=== PATIENT | female | born 1945 | race Two or more races ===

== ENCOUNTER 2022-10-21 23:28 | Inpatient (IN) | payer MEDICARE ==
[~2022-10-21] VITALS: Ht 162.6 cm; Wt 54.9 kg
[2022-10-21] MEDS ORDERED: ONDANSETRON HCL/PF 4 MG/2 ML VIAL ONE (23:43)
[2022-10-21] MEDS ORDERED: MORPHINE SULFATE INJ 4 MG/ML DISP.SYRIN ONE (23:44)
[2022-10-21 23:49] LABS: BASOPHILS # (AUTO) 0.1 K/uL (0.0-0.2); BASOPHILS % (AUTO) 1.1 % (0.0-2.0); EOSINOPHILS # (AUTO) 0.2 K/uL (0.0-0.7); EOSINOPHILS % (AUTO) 1.8 % (0.0-6.0); HEMATOCRIT 40 % (33-45); HEMOGLOBIN 13.4 g/dL (11.5-14.8); LYMPHOCYTES # (AUTO) 1.4 K/uL (0.8-4.8); LYMPHOCYTES % (AUTO) 14.6 % (20.0-44.0); MEAN CORPUSCULAR HEMOGLOBIN 31 PG (26.0-33.0); MEAN CORPUSCULAR HGB CONC 33 g/dl (31.0-36.0); MEAN CORPUSCULAR VOLUME 94 fL (82-100); MONOCYTES # (AUTO) 0.6 K/uL (0.1-1.30); MONOCYTES % (AUTO) 5.8 % (2.0-12.0); NEUTROPHILS # (AUTO) 7.6 K/uL (1.8-8.9); NEUTROPHILS % (AUTO) 76.7 % (43.0-81.0); PLATELET COUNT (AUTO) 163 K/uL (150-450); RED BLOOD CELL COUNT(AUTO) 4.29 MIL/uL (4.0-5.2); WHITE BLOOD COUNT (AUTO) 9.9 K/uL (4.3-11.0)
[2022-10-22] MEDS ORDERED: ONDANSETRON HCL/PF 4 MG/2 ML VIAL IVP ONE
[2022-10-22 00:06] LABS: CALCIUM, SERUM 9.3 mg/dL (8.5-10.1); CREATININE 0.6 mg/dL (0.6-1.3)
[2022-10-22] MEDS ORDERED: MORPHINE SULFATE INJ 4 MG/ML DISP.SYRIN ONE (03:32)
[2022-10-22] MEDS ORDERED: ONDANSETRON HCL/PF 4 MG/2 ML VIAL IVP PRN (04:00)
[2022-10-22] MEDS ORDERED: MORPHINE SULFATE INJ 2 MG/ML DISP.SYRIN IV ONE ×2 (04:00)
[2022-10-22] MEDS: IV NS 0.9% 1,000 ML IV PRN ×2 (04:12→20:20)
[2022-10-22 08:00] VITALS: BP 150/73; TEMP 97.9; O2SAT 92
[2022-10-22] MEDS: PANTOPRAZOLE 40 MG VIAL IV SCH (08:54)
[2022-10-22] MEDS ORDERED: ATOR10TA PO (09:20)
[2022-10-22] MEDS ORDERED: PROP20TA19 PO (09:20)
[2022-10-22] MEDS ORDERED: DULO60CA64 PO (09:20)
[2022-10-22] MEDS ORDERED: QUET100T PO (09:20)
[2022-10-22] MEDS ORDERED: DILT120C87 PO (09:34)
[2022-10-22 12:59] VITALS: O2SAT 94
[2022-10-22 16:00] VITALS: BP 161/83; TEMP 98.3; O2SAT 92
[2022-10-22] MEDS: hydrALAZINE HCL IV 20 MG VIAL IV PRN (18:05)
[2022-10-22 18:49] VITALS: BP 138/76
[2022-10-22 20:30] VITALS: BP 123/81; TEMP 98.2; O2SAT 96
[2022-10-22] MEDS: MORPHINE SULFATE INJ 2 MG/ML DISP.SYRIN IV PRN (21:47)
[2022-10-23] MEDS: MORPHINE SULFATE INJ 2 MG/ML DISP.SYRIN IV PRN ×2 (03:20→21:58)
[2022-10-23 06:16] LABS: BASOPHILS % (AUTO) 0.4 % (0.0-2.0); EOSINOPHILS # (AUTO) 0.1 K/uL (0.0-0.7); EOSINOPHILS % (AUTO) 1.4 % (0.0-6.0); HEMATOCRIT 43 % (33-45); HEMOGLOBIN 13.9 g/dL (11.5-14.8); LYMPHOCYTES % (AUTO) 12.3 % (20.0-44.0); MEAN CORPUSCULAR HEMOGLOBIN 31 PG (26.0-33.0); MEAN CORPUSCULAR HGB CONC 33 g/dl (31.0-36.0); MEAN CORPUSCULAR VOLUME 95 fL (82-100); MONOCYTES # (AUTO) 0.7 K/uL (0.1-1.30); MONOCYTES % (AUTO) 8.6 % (2.0-12.0); NEUTROPHILS # (AUTO) 6.2 K/uL (1.8-8.9); NEUTROPHILS % (AUTO) 77.3 % (43.0-81.0); PLATELET COUNT (AUTO) 160 K/uL (150-450); RED BLOOD CELL COUNT(AUTO) 4.47 MIL/uL (4.0-5.2); RED CELL DISTRIBUTION WIDTH 14.2 % (11.5-15.0); WHITE BLOOD COUNT (AUTO) 8.1 K/uL (4.3-11.0)
[2022-10-23 06:37] LABS: CALCIUM, SERUM 9.1 mg/dL (8.5-10.1); CARBON DIOXIDE 28 mmol/L (21-32); CHLORIDE 104 mmol/L (98-107); CREATININE 0.6 mg/dL (0.6-1.3); GLUCOSE 105 mg/dL (74-106); MAGNESIUM 1.9 mg/dL (1.8-2.4); PHOSPHORUS 2.8 mg/dL (2.5-4.9); POTASSIUM 4.4 mmol/L (3.5-5.1); SODIUM SERUM 139 mmol/L (136-145); UREA NITROGEN, BLOOD 11 mg/dL (7-18)
[2022-10-23 06:43] LABS: THYROID STIMULATING HORMONE 2.821 uIU/mL (0.358-3.74); URIC ACID 3.6 mg/dL (2.6-7.2)
[2022-10-23 07:30] VITALS: BP 152/83; TEMP 98.2; O2SAT 96
[2022-10-23] MEDS: PANTOPRAZOLE 40 MG VIAL IV SCH (08:23)
[2022-10-23] MEDS: IV NS 0.9% 1,000 ML IV PRN (08:23)
[2022-10-23 12:37] VITALS: BP 167/89; TEMP 97.9; O2SAT 97
[2022-10-23] MEDS: hydrALAZINE HCL IV 20 MG VIAL IV PRN (12:37)
[2022-10-23] MEDS: LORAZEPAM INJ 2 MG/ML VIAL IV PRN (12:43)
[2022-10-23] MEDS ORDERED: DIATR MEGLU/DIATRIZOATE SODIUM 120 ML BOTTLE (GASTROGRAPHIN) ONE (15:15)
[2022-10-23 16:45] VITALS: BP 106/74; O2SAT 97
[2022-10-23 16:50] VITALS: BP 109/64; O2SAT 97
[2022-10-23 18:09] VITALS: BP 110/74; O2SAT 96
[2022-10-23 20:00] VITALS: BP 144/79; TEMP 98.4; O2SAT 97
[2022-10-24] MEDS: LORAZEPAM INJ 2 MG/ML VIAL IV PRN (01:17)
[2022-10-24] MEDS: IV NS 0.9% 1,000 ML IV PRN (01:48)
[2022-10-24 07:30] VITALS: BP 159/88; TEMP 97.9; O2SAT 96
[2022-10-24 08:49] LABS: BASOPHILS % (AUTO) 0.9 % (0.0-2.0); EOSINOPHILS % (AUTO) 0.8 % (0.0-6.0); HEMATOCRIT 36 % (33-45); HEMOGLOBIN 11.8 g/dL (11.5-14.8); LYMPHOCYTES # (AUTO) 1.2 K/uL (0.8-4.8); MEAN CORPUSCULAR HEMOGLOBIN 31 PG (26.0-33.0); MEAN CORPUSCULAR HGB CONC 33 g/dl (31.0-36.0); MEAN CORPUSCULAR VOLUME 95 fL (82-100); MONOCYTES # (AUTO) 0.5 K/uL (0.1-1.30); MONOCYTES % (AUTO) 9.5 % (2.0-12.0); NEUTROPHILS # (AUTO) 3.8 K/uL (1.8-8.9); NEUTROPHILS % (AUTO) 67.8 % (43.0-81.0); PLATELET COUNT (AUTO) 135 K/uL (150-450); RED BLOOD CELL COUNT(AUTO) 3.79 MIL/uL (4.0-5.2); RED CELL DISTRIBUTION WIDTH 13.9 % (11.5-15.0); WHITE BLOOD COUNT (AUTO) 5.6 K/uL (4.3-11.0)
[2022-10-24 09:04] LABS: CALCIUM, SERUM 8.4 mg/dL (8.5-10.1); CARBON DIOXIDE 28 mmol/L (21-32); CHLORIDE 108 mmol/L (98-107); CREATININE 0.5 mg/dL (0.6-1.3); GLUCOSE 90 mg/dL (74-106); MAGNESIUM 1.8 mg/dL (1.8-2.4); PHOSPHORUS 2.6 mg/dL (2.5-4.9); SODIUM SERUM 142 mmol/L (136-145); UREA NITROGEN, BLOOD 9 mg/dL (7-18)
[2022-10-24] MEDS: PANTOPRAZOLE 40 MG VIAL IV SCH (09:08)
[2022-10-24] MEDS ORDERED: POTASSIUM CHLORIDE 20 MEQ TAB.PRT.SR PO ONE ×2 (10:00→14:00)
[2022-10-24] MEDS ORDERED: LORA-259 PO (16:41)
[2022-10-25] MEDS ORDERED: PANTOPRAZOLE 40 MG TABLET.DR PO SCH (09:00)
== END 2022-10-24 18:20 | disposition home or self-care (01) | DRG 389 ==
LOC: ER 23:30 → MED 10-22 03:31
PROVIDERS: ADMIT Nurse Practitioner Acute Care; ATTEND Nurse Practitioner Acute Care
DX: K56.609 Unspecified intestinal obstruction, unspecified as to partial versus complete obstruction (principal); E87.1 Hypo-osmolality and hyponatremia; M48.54XA Collapsed vertebra, not elsewhere classified, thoracic region, initial encounter for fracture; I10 Essential (primary) hypertension; E86.1 Hypovolemia; Z98.890 Other specified postprocedural states; Z87.19 Personal history of other diseases of the digestive system; Z98.1 Arthrodesis status; F32.9 Major depressive disorder, single episode, unspecified; Z87.39 Personal history of other diseases of the musculoskeletal system and connective tissue; E78.5 Hyperlipidemia, unspecified; G43.909 Migraine, unspecified, not intractable, without status migrainosus; F41.1 Generalized anxiety disorder; G47.00 Insomnia, unspecified; Z90.49 Acquired absence of other specified parts of digestive tract; Z88.6 Allergy status to analgesic agent; Z88.2 Allergy status to sulfonamides; E87.6 Hypokalemia; Z79.899 Other long term (current) drug therapy; F39 Unspecified mood [affective] disorder
CPT/HCPCS: 36415; 71045-TC; 74250-TC; 80048-TC; 83735-TC; 84100-TC; 84300-TC; 84443-TC; 84550-TC; 85025-TC; 87081-TC; 93307-TC; 97110-TC; 97112-TC; 97116-TC; 97530-TC; A4223; C9113; G0378; J0360; J2060; J2270; J2405; J7030; Q9963